=== PATIENT | female | born 1995 | race Caucasian/White ===

== ENCOUNTER 2017-02-18 00:54 | Inpatient (IN) | payer BC ==
[~2017-02-18] VITALS: Ht 170.2 cm; Wt 87.7 kg
[2017-02-18] VITALS (41 sets, daily range): BP systolic 91–145; BP diastolic 52–86; PULSE 61–113; TEMP 97.7–97.9
[2017-02-18 01:57] LABS: BASO # 0.1 (0.0-0.2); BASO % 0.4 % (0.0-2.0); EOS # 0.2 (0.0-0.7); GRAN # 11.1 (1.4-6.5); GRAN % 70.5 % (42.2-75.2); HEMATOCRIT 37.7 % (37.0-47.0); HEMOGLOBIN 13.1 g/dl (12.5-16.0); LYMPH # 2.5 (1.2-3.4); MEAN CELL VOLUME 91 fl (80.0-100.0); MEAN CORPUSCULAR HEMOGLOBIN 32 pg (27.0-31.0); MEAN CORPUSCULAR HGB CONC 35 g/dl (33.0-37.0); MEAN PLATELET VOLUME 11.8 fl (7.4-10.4); MONO # 1.1 (0.1-0.6); MONO % 7.1 % (1.7-9.3); PLATELET COUNT 147 K/mm3 (130-400); RED BLOOD COUNT 4.15 M/mm3 (4.10-5.30); REDCELL DISTRIBUTION WIDTH-CV 13.1 % (11.5-14.5); WHITE BLOOD COUNT 15.8 K/mm3 (4.8-10.8)
[2017-02-19 02:00] VITALS: BP 116/68; PULSE 72; TEMP 98.3
[2017-02-19 07:17] VITALS: BP 110/74; PULSE 76; TEMP 97.8
[2017-02-19] MEDS ORDERED: PERCOCET 325 MG1 TA2 PO (08:10)
[2017-02-19] MEDS ORDERED: IBU600 MG PO (08:10)
[2017-02-19 16:50] VITALS: BP 139/83; PULSE 75; TEMP 98.2
[2017-02-19 20:40] VITALS: BP 110/65; PULSE 73; TEMP 97.7
[2017-02-20 09:00] VITALS: BP 108/73; PULSE 75; TEMP 97.5
== END 2017-02-20 15:30 | disposition home or self-care (01) | DRG 775 ==
LOC: LDRO 00:54 → LDR 01:05 → OB 16:15
PROVIDERS: Obstetrics & Gynecology
PROC: 10E0XZZ Delivery of Products of Conception, External Approach (ICD-10-PCS; principal; 2017-02-18)
PROC: 0UQM0ZZ Repair Vulva, Open Approach (ICD-10-PCS; 2017-02-18)
PROC: 0HQ9XZZ Repair Perineum Skin, External Approach (ICD-10-PCS; 2017-02-18)
DX: O99.824 Streptococcus B carrier state complicating childbirth (principal); O70.0 First degree perineal laceration during delivery; Z3A.38 38 weeks gestation of pregnancy; Z37.0 Single live birth
CPT/HCPCS: J1200; J2210; J2540; J2590; J2795; J7120

== ENCOUNTER 2019-05-10 22:34 | Observation (INO) | payer BC ==
[~2019-05-10] VITALS: Ht 170.2 cm; Wt 63.6 kg
[~2019-05-10 22:34] MED LIST: IBU600 MG PO; PERCOCET 325 MG1 TA2 PO
[2019-05-10 23:25] LABS: BASO # 0.1 (0.0-0.2); BASO % 0.9 % (0.0-2.0); EOS # 0.2 (0.0-0.7); EOS % 1.8 % (0-4.0); GRAN # 5.4 (1.4-6.5); GRAN % 49.7 % (42.2-75.2); HEMATOCRIT 37.2 % (37.0-47.0); HEMOGLOBIN 12.2 g/dl (12.5-16.0); LYMPH # 4.4 (1.2-3.4); LYMPH % 40.8 % (20.0-51.0); MEAN CELL VOLUME 93 fl (80.0-100.0); MEAN CORPUSCULAR HEMOGLOBIN 30 pg (27.0-31.0); MEAN CORPUSCULAR HGB CONC 33 g/dl (33.0-37.0); MEAN PLATELET VOLUME 10.7 fl (7.4-10.4); MONO # 0.7 (0.1-0.6); MONO % 6.3 % (1.7-9.3); PLATELET COUNT 200 K/mm3 (130-400); RED BLOOD COUNT 4.01 M/mm3 (4.10-5.30); REDCELL DISTRIBUTION WIDTH-CV 12.3 % (11.5-14.5)
[2019-05-10 23:34] LABS: ALANINE AMINOTRANSFERASE 7 U/L (9-52); ALBUMIN 4.1 gm/dL (3.5-5.0); ALKALINE PHOSPHATASE 32 U/L (50-136); ANION GAP 8 mmol/L (7-16); AST,SGOT 24 U/L (15-37); BILIRUBIN,TOTAL 0.9 mg/dL (0.0-1.0); BLOOD UREA NITROGEN 15 mg/dL (7-17); CALCIUM 8.9 mg/dL (8.4-10.2); CARBON DIOXIDE 25 mmol/L (22-30); CHLORIDE 103 mmol/L (98-107); CREATININE, serum 0.73 (0.52-1.25); GLUCOSE 105 mg/dL (74-106); LIPASE 133 U/L (23-300); POTASSIUM 3.6 mmol/L (3.4-5.0); SODIUM 136 mmol/L (137-145); TOTAL PROTEIN 6.7 gm/dL (6.4-8.2)
[2019-05-10 23:35] LABS: C-REACTIVE PROTEIN < 0.5 mg/dL (0.0-0.9)
[2019-05-10 23:55] LABS: COLLECTION METHOD CLEAN CATCH
[2019-05-11] VITALS (7 sets, daily range): BP systolic 87–119; BP diastolic 43–58; PULSE 61–74; TEMP 97.2–97.6
[2019-05-11] LABS: MUCOUS Present /lpf; PH 6 (5-8); SQUAMOUS EPITHELIAL 0-2 /hpf; URINE APPEARANCE Clear; URINE BACTERIA None Seen /hpf; URINE BILIRUBIN Negative (NEGATIVE); URINE BLOOD Negative (NEGATIVE); URINE COLOR Yellow; URINE GLUCOSE Negative (NEGATIVE); URINE KETONE Negative (NEGATIVE); URINE LEUKOCYTE ESTERASE Negative (NEGATIVE); URINE NITRATE Negative (NEGATIVE); URINE PROTEIN(semi-quant) Negative (NEGATIVE); URINE RBC 0-2 /hpf; URINE UROBILINOGEN Negative (NEGATIVE)
[2019-05-11] MEDS ORDERED: IBU600 MG PO (06:06)
[2019-05-11] MEDS ORDERED: PERCOCET 325 MG1 TA2 PO (06:06)
--- NOTE | 2019-05-11 06:45 | NUR ---
Pt arrives to floor via bed with PACU nurse. Pt ambulated from PACU bed to room bed with 's assistance. Pt denied need to use restroom. SCD's on bilateral lower legs, LR running via IV in right hand, call light placed next to pt in bed. Pt resting comfortably, denies needs at this time.
== END 2019-05-11 11:30 | disposition home or self-care (01) ==
LOC: COL.ER 22:34 → OB 05-11 03:15
PROVIDERS: Emergency Medicine; ADMIT Obstetrics & Gynecology
DX: O00.101 Right tubal pregnancy without intrauterine pregnancy (principal); D64.9 Anemia, unspecified; T83.9XXA Unspecified complication of genitourinary prosthetic device, implant and graft, initial encounter; Z83.3 Family history of diabetes mellitus; G43.909 Migraine, unspecified, not intractable, without status migrainosus
CPT/HCPCS: G0378; J0690; J1100; J1170; J1885; J2175; J2270; J2405; J2704; J2710; J3010; J7030; J7120

== ENCOUNTER → 2019-07-16 | Outpatient (CLI) | payer BC | LOC: COL.RAD 15:27 | DX: Z30.431 Encounter for routine checking of intrauterine contraceptive device (principal) ==

== ENCOUNTER 2022-09-30 04:33 | Inpatient (IN) | payer BC ==
[~2022-09-30] VITALS: Ht 170.2 cm; Wt 85.0 kg
[2022-09-30] VITALS (16 sets, daily range): BP systolic 102–142; BP diastolic 56–81; PULSE 73–109; TEMP 97.8–98.1
--- NOTE | 2022-09-30 04:45 | NUR ---
G3L1 at 39 weeks and 2 days arrives to unit with complaint of contractions every 2 minutes starting around 0130. Pt denies LOF or vaginal bleeding. Reports good movement. Pt with thrombocytopenia this , closely monitoring labs. Clean gown on. Pt oriented to room, call light within reach, bed in low and locked position. US and toco explained and applied. Admission assessment started. Vitals obtained. SVE 7/90/-1, membranes intact, vertex position.
[2022-09-30 05:33] LABS: HEMATOCRIT 37.6 % (37.0-47.0); MEAN CELL VOLUME 92 fl (80.0-100.0); MEAN CORPUSCULAR HEMOGLOBIN 32 pg (27-31); MEAN CORPUSCULAR HGB CONC 35 g/dl (33.0-37.0); MEAN PLATELET VOLUME 11.7 fl (7.4-10.4); PLATELET COUNT 137 K/mm3 (130-400); RED BLOOD COUNT 4.09 M/mm3 (4.10-5.30)
--- NOTE | 2022-09-30 05:33 | NUR ---
0515 - Demarcus Humphreys CRNA called for epidural placement, will come to bedside. 0525 - Leatha Humphreys CRNA at bedside. Pt positioned to sitting on edge of bed. Epidural procedure, risks, and benefits reviewed with patient, verbalized understanding. 0533 - Single shot by Leatha Humphreys CRNA, patient denies any adverse reactions. 0540 - Pt positioned to right side lying, pillow support provided. Reviewed safety precautions. Bed in low and locked position, call light within reach. See anesthesia record.
[2022-09-30 05:50] LABS: BAND 6 % (0-10); EOSINOPHIL 2 % (0-4); LYMPHOCYTE 9 % (20.0-51.0); METAMYELOCYTE 1 % (0-0); NEUTROPHILS 77 % (42.0-75.2); PLATELET ESTIMATE NORMAL (NORMAL)
[2022-09-30] MEDS ORDERED: MOTRIN 800800 MG/TAB PO (07:38)
--- NOTE | 2022-09-30 10:20 | NUR ---
THIS RN USES [facility] TO GET PT TO BATHROOM. PT UNABLE TO VOID. PERICARE DONE. CLEAN PAD AND UNDERWEAR PLACED. PT CHANGED INTO CLEAN GOWN. [facility] AND THIS RN WHEELS PT TO ROOM 218. PT ORIENTED TO ROOM. CALL LIGHT WITHIN REACH.
[2022-10-01 00:10] VITALS: BP 124/72; PULSE 82; TEMP 98.3
[2022-10-01 04:17] VITALS: BP 118/67; PULSE 79; TEMP 98
[2022-10-01 09:00] VITALS: BP 116/78; PULSE 87; TEMP 98
--- NOTE | 2022-10-01 09:15 | NUR ---
Initial visit; Parents thanked [employer] for offering congratulations and God's blessings for the of their daughter. [employer] thanked family for choosing [facility] to which they stated that they have had a very good experience at our hospital.
--- NOTE | 2022-10-01 13:00 | NUR ---
Discharge instructions and follow up care reviewed with pt and at the bedside. Both verbalized an understanding, agreed with the plan and states no questions or concerns at this time.
== END 2022-10-01 13:05 | disposition home or self-care (01) | DRG 807 ==
LOC: LDRO 04:33 → OB 04:45 → LDR 04:45 → OB 10:15
PROVIDERS: Obstetrics & Gynecology; ADMIT Obstetrics & Gynecology
PROC: 10E0XZZ Delivery of Products of Conception, External Approach (ICD-10-PCS; principal; 2022-09-30)
PROC: 10907ZC Drainage of Amniotic Fluid, Therapeutic from Products of Conception, Via Natural or Artificial Opening (ICD-10-PCS; 2022-09-30)
DX: O99.12 Other diseases of the blood and blood-forming organs and certain disorders involving the immune mechanism complicating childbirth (principal); Z37.0 Single live birth; D69.59 Other secondary thrombocytopenia; Z3A.39 39 weeks gestation of pregnancy; Z86.16 Personal history of COVID-19
CPT/HCPCS: J2590; J2795; J7120

== ENCOUNTER → 2022-12-31 | Outpatient (CLI) | payer BC ==
[~2022-12-31] MED LIST changes: +MOTRIN 800800 MG/TAB PO
--- NOTE | 2022-12-31 13:21 | NUR ---
Pt, Yuridia Dugan, presents for outpatient consult with 3 month old baby girl, Doni Dugan. She states she concerned Doni has a tongue tie, that Doni's feeding bahaviours have changed over the last 1.5 months where nusing on the left side can be painful, that she pulls at the nipple, pops off and on, is noisy, and that she has a preference for nursing the left breast in football hold because she tends to turn her head to the left. Doni was born on [birth year] and weighed 8# 6.4oz (3810 gms). Today she weighs 13# 4.4oz (6050 gms). LC observes Doni has a high palate, there is a moderate tether of the upper lip, possible posterior tongue tie, clacking, a tendancy to pull her tongue to the left and generally prefer to turn her head to the left although she can turn right when enticed with a toy. When Doni nurses her tongue is visiable across the gum and tongue, her top lip does roll under, and as noted she has a lot of clacking. After Doni had a gain of 1oz from the left and 1.6 from the right (2.6oz/75 gms total). Pt states when she pumps in the afternoons at work she collects 3-3.5oz. Impression: As noted in observations above and low milk transfer at this meal. Pt states she will likely get Doni evaluated by a chiropractor and a dentist for the lip and possible posterior tongue tie. POC: Continue BF and pumping as has been. F/U: As desired with LC and as scheduled with physicians. Questions invited and answered.
== END ==
LOC: LAC 13:41
DX: Z39.1 Encounter for care and examination of lactating mother (principal); Z71.89 Other specified counseling